=== PATIENT | male | born 1965 | race Caucasian/White ===

== ENCOUNTER → 2017-09-28 | Outpatient (CLI) | payer OTHER | LOC: BRMIMAGING 09:27 | PROVIDERS: ATTEND Internal Medicine | DX: M85.872 Other specified disorders of bone density and structure, left ankle and foot (principal); S93.10 Unspecified subluxation and dislocation of toe; M06.4 Inflammatory polyarthropathy | CPT/HCPCS: 73610-PO; 73630-PO ==